=== PATIENT | female | born 1945 | race Caucasian/White ===

== ENCOUNTER 2024-06-24 19:30 | Emergency (ER) | payer MEDICARE, OTHER, SELFPAY ==
[2024-06-24 19:37] VITALS: BP 192/100
[2024-06-24 19:58] LABS: % Basophils 0.9 % (0-2); % Eosinophils 3.8 % (0-6); % Immature Granulocytes 0.2 % (0-0.5); % Monocytes 10.9 % (1.7-9.3); % Neutrophils 58.2 % (42.2-75.2); Absolute Basophils 0.1 10^3/uL (0-0.2); Absolute Eosinophils 0.3 10^3/uL (0-0.7); Absolute Lymphocytes 1.7 10^3/uL (1.2-3.4); Absolute Monocytes 0.7 10^3/uL (0.1-0.6); Absolute Neutrophils 3.8 10^3/uL (1.4-6.5); Hemoglobin 13.2 g/dL (12.0-16.0); Mean Corp Hgb Conc. 34.7 g/dL (33.0-37.0); Mean Platelet Volume 9.8 fL (7.4-10.4); Nucleated Red Blood Cells % 0 %; Platelet Count 287 10^3/uL (130-400); Red Blood Cell Count 4.13 10^6/uL (4.20-5.40); Red Cell Dist. Width 12.8 % (11.5-14.5); White Blood Cell Count 6.5 10^3/uL (4.8-10.8)
[2024-06-24 20:12] LABS: ALT (SGPT) 19 U/L (0-35); AST (SGOT) 29 U/L (14-36); Albumin 4.6 g/dl (3.5-5.0); Alkaline Phosphatase 130 U/L (38-126); Blood Urea Nitrogen 30 mg/dl (7-17); Calcium 10.5 mg/dl (8.4-10.2); Carbon Dioxide 23 mmol/L (22-30); Chloride 102 mmol/L (98-107); Glucose 129 mg/dl (70-99); Sodium 141 mmol/L (135-145); Total Bilirubin 0.3 mg/dl (0.2-1.3); Total Protein 7.1 g/dl (6.3-8.2); eGFR > 60.00
[2024-06-24 22:15] VITALS: BMI 22.3
[2024-06-24 22:18] VITALS: BP 193/102
[2024-06-24] MEDS: LOPRESSOR 50 MG PO (22:47)
--- NOTE | 2024-06-24 22:49 | ED.GENMED ---
History of Present Illness
General
Chief Complaint: Blood Pressure Problem
Source: patient
Exam Limitations: none
Time Seen by Provider: 06/24/24 22:33
Nursing documentation reviewed up to this point in time: agreed with
History of Present Illness
History of Present Illness:
Pleasant 79-year-old female that presents with high blood pressure. Patient states that she has extreme whitecoat anxiety. [place] on the curb banging up her knees and her right shoulder.
She reports that she went to 1 urgent care. After waiting a short while they told her that they could not x-ray her extremities that she would have to go to another urgent care. She went to another urgent care and x-rayed her and told her
everything was normal. Upon discharge her blood pressure was elevated and the urgent care physician told her 'go immediately to the emergency department by ambulance because your blood pressure is so high you could have a heart attack in any second
'. Patient became extremely anxious and took the ambulance to [facility]. Patient denies chest pain or shortness of breath. She states that she does feel anxious but it is the same anxiety she feels in any hospital situation. She has
been taking her medication as directed. She has no musculoskeletal complaints at this time. She does have a minor ache in her right shoulder.
Phy Exam
General Physical Exam
General Presentation: well appearing and no apparent distress
General Skin: warm and dry
General Habitus: normal
General Mental: alert
General Hydration: appears well hydrated
ENT Exam
ENT Exam: EOMI, pharynx normal, neck supple and normocephalic
Eye Exam
Eye Exam: PERRL, cornea clear and conjunctiva normal
Cardiovascular Exam
Cardiovascular Exam: regular rate/rhythm, no edema, no murmur and normal peripheral pulses
Pulmonary Exam
Pulmonary Exam: lungs clear, no respiratory distress, no rales, no crackles, no rhonchi, no stridor, no wheezing and no cough
Gastrointestinal Exam
Gastrointestinal Exam: normal bowel sounds, non tender, soft, no organomegaly, no pulsatile mass and non distended
Neurological Exam
Neurological Exam: alert, oriented x3, no motor deficits and speech normal
Musculoskeletal Exam
Musculoskeletal Exam: full ROM and no edema
Skin Exam
Skin Exam: normal color, warm/dry, no rash and no petechia
Psychiatric Exam
Psychiatric Exam: normal mood/affect
Course
Orders/Labs/Results
Orders:
Orders
06/24/24 19:48
CMP [Comprehensive Metabolic Panel] Urgent
Complete Blood Count/With Diff Urgent
06/24/24 22:35
Metoprolol [Lopressor] 50 mg PO NOW STA
06/24/24 22:53
Acetaminophen [Tylenol] 650 mg PO NOW STA
Abnormal Lab Results
06/24/24
19:48
RBC 4.13 L 10^6/uL
(4.20-5.40)
MCH 32.0 H pg
(27.0-31.0)
Absolute Monos (auto) 0.7 H 10^3/uL
(0.1-0.6)
Monocytes % 10.9 H %
(1.7-9.3)
BUN 30 H mg/dl
(7-17)
Glucose 129 H mg/dl
(70-99)
Calcium 10.5 H mg/dl
(8.4-10.2)
Alkaline Phosphatase 130 H U/L
(38-126)
06/24/24 19:48
06/24/24 19:48
Vital Signs
Initial and Last Documented VS:
Initial Vital Signs
Temp Pulse Resp BP Pulse Ox
97.8 F 66 22 192/100 96
06/24/24 19:37 06/24/24 19:37 06/24/24 19:37 06/24/24 19:37 09/08/24 19:37
Last Documented Vital Signs
Temp Pulse Resp BP Pulse Ox
97.8 F 64 16 160/82 98
06/24/24 19:37 06/25/24 00:00 06/25/24 00:00 06/25/24 00:00 06/25/24 00:00
*Critical Care Note
Total Time (30-74mins, 75-104mins- exclusive of procedures): Not Applicable
ED Attending Note
-
Portions of this chart may have been created with voice recognition software.� Occasional wrong word or��sound alike� substitutions may have occurred due to the inherent limitations of voice recognition software.
Discharge Plan
Departure
Patient Disposition: Home (Routine Discharge)
Date of Disposition: 06/25/24
Time of Disposition: 00:31
Patient with high blood pressure during this ER visit?: Yes
Condition: Good
Discharge Problem:
Hypertension
Instructions: High Blood Pressure (DC), High Blood Pressure ED
Prescriptions:
No Action
atorvastatin 10 MG tablet
10 mg PO DAILY
alendronate 70 MG tablet
70 mg PO WEEKLY
Patient Comments:
tuesday
metoprolol tartrate 50 MG tablet
50 mg PO DAILY
methimazole [Northyx] 5 MG tablet
5 mg PO MOTUWETHFR
lisinopril [Prinivil] 40 MG tablet
40 mg PO DAILY
multivitamin with folic acid [Tab-A-Rea] 1 TABLET tablet
1 tab PO DAILY
Ca-D3-mag [id number] [Calcium 600-D3 Plus (mag-zinc)] 1 EACH tablet
1 ea PO DAILY
latanoprost (PF) 7.5 ML drops
1 drp LEFT EYE Q48H
Patient Comments:
HS
oxycodone 5 MG tablet
5 mg PO Q4HPRN PRN (Reason: breakthrough/severe pain) Qty: 5 0RF
Referrals:
Kirti Phoenix, DO [Family Provider] -
Activity Restrictions/Additional Instructions:
It was a pleasure meeting you and taking part in your care. We hope for your continued healing and wellness.
Please read discharge instructions in their entirety. However, they are for general education and may not describe your exact diagnosis at discharge. Information on your ER visit and medical conditions were discussed with you along with appropriate
follow up information...
If indicated, please take your medications as instructed and indicated on discharge paperwork.
Please schedule a follow up appointment as directed. Call to schedule an appointment
Please return to the emergency department with ANY change in, persisting, or worsening of symptoms. If any of your symptoms do not improve, or persist, or become more severe within 6-12 hours, please return to the emergency department for further
care.
Please return to the emergency department if you develop a headache, neck pain/stiffness, fever greater than 100.4F, chest pain, shortness of breath, persistent nausea, vomiting, slurred speech, difficulty walking, numbness/tingling, weakness, signs
of infection or any other symptoms that are worrisome to you.
If you have any questions or concerns please do not hesitate to call the Hospital at or E-mail me directly at [email or web address]
Interventions
Interventions:
*Risk Screen - Suicide Last Done: 06/24/24 19:37
*General Assessment Last Done: 06/24/24 22:15
*Neglect/Abuse Screening Last Done: 06/24/24 19:37
*ED COVID-19 Vaccine History Last Done: 06/24/24 22:15
*Nursing Disposition Last Done: 06/25/24 00:38
ED- Cardiac Assessment Last Done: 06/24/24 22:15
ED-Musculoskeletal Assessment Last Done: 06/24/24 22:15
ED- Neurological Assessment Last Done: 06/24/24 22:15
ED- Pulmonary Assessment Last Done: 06/24/24 22:15
Discharge Date and Time
Discharge Date/Time: 06/25/24 00:48
Print Language: SINHALA
[2024-06-24 23:00] VITALS: BP 190/99
[2024-06-24] MEDS: TYLENOL 650 MG PO (23:12)
[2024-06-24 23:35] VITALS: BP 168/87
[2024-06-25] VITALS: BP 160/82
== END 2024-06-25 00:48 | disposition home or self-care (01) ==
LOC: EMR 19:30
PROVIDERS: Emergency Medicine; EMERGENCY PHYSICIAN Student in an Organized Health Care Education/Training Program; FAMILY PHYSICIAN Family Medicine
DX: I10 Essential (primary) hypertension (principal)
CPT/HCPCS: 99283; 80053; 85025

== ENCOUNTER → 2024-10-19 08:15 | Outpatient (REF) | payer MEDICARE, OTHER, SELFPAY ==
[2024-10-19 09:32] LABS: % Basophils 1.1 % (0-2); % Eosinophils 3.7 % (0-6); % Immature Granulocytes 0.2 % (0-0.5); % Lymphocytes 27.9 % (20.5-51.1); % Monocytes 8.8 % (1.7-9.3); % Neutrophils 58.3 % (42.2-75.2); Absolute Basophils 0.1 10^3/uL (0-0.2); Absolute Eosinophils 0.2 10^3/uL (0-0.7); Absolute Lymphocytes 1.3 10^3/uL (1.2-3.4); Absolute Monocytes 0.4 10^3/uL (0.1-0.6); Absolute Neutrophils 2.7 10^3/uL (1.4-6.5); Hematocrit 40.9 % (37.0-47.0); Hemoglobin 13.4 g/dL (12.0-16.0); Mean Corp Hgb Conc. 32.8 g/dL (33.0-37.0); Mean Corpuscular Hgb 30.7 pg (27.0-31.0); Mean Corpuscular Volume 93.8 fL (81.0-99.0); Mean Platelet Volume 9.7 fL (7.4-10.4); Nucleated Red Blood Cells % 0 %; Platelet Count 289 10^3/uL (130-400); Red Blood Cell Count 4.36 10^6/uL (4.20-5.40); White Blood Cell Count 4.6 10^3/uL (4.8-10.8)
[2024-10-19 10:55] LABS: ALT (SGPT) 17 U/L (0-35); AST (SGOT) 26 U/L (14-36); Albumin 4.7 g/dl (3.5-5.0); Alkaline Phosphatase 82 U/L (38-126); Blood Urea Nitrogen 25 mg/dl (7-17); Calcium 9.8 mg/dl (8.4-10.2); Carbon Dioxide 26 mmol/L (22-30); Chloride 100 mmol/L (98-107); Glucose 97 mg/dl (70-99); HDL Cholesterol 98 mg/dl; LDL Cholesterol, Calculated 86 mg/dl; Potassium 4.8 mmol/L (3.5-5.1); Sodium 138 mmol/L (135-145); Total Bilirubin 0.6 mg/dl (0.2-1.3); Total Cholesterol 197 mg/dl (50-199); Total Protein 7.3 g/dl (6.3-8.2); Triglyceride 67 mg/dl (10-149); Very Low Density Lipoprotein 13 mg/dl (0-30); eGFR > 60.00
[2024-10-19 12:41] LABS: Glycohemoglobin (HgbA1c) 5.8 % (4.0-5.6)
== END ==
LOC: HWLAB 08:15
PROVIDERS: ATTENDING PHYSICIAN Family Medicine
DX: I10 Essential (primary) hypertension (principal); E78.2 Mixed hyperlipidemia; R73.01 Impaired fasting glucose; E05.00 Thyrotoxicosis with diffuse goiter without thyrotoxic crisis or storm
CPT/HCPCS: 36415; 80053; 80061; 83036; 85025

== ENCOUNTER → 2025-04-30 12:45 | Outpatient (REF) | payer MEDICARE, OTHER, SELFPAY | LOC: RAD 12:45 | PROVIDERS: ATTENDING PHYSICIAN Family Medicine | DX: R10.30 Lower abdominal pain, unspecified (principal) | CPT/HCPCS: 74176 ==